=== PATIENT | male | born 1985 | race Caucasian/White ===

== ENCOUNTER 2018-04-01 13:11 | Emergency (ER) | payer OTHER, MEDICAID, SELFPAY ==
[2018-04-01 13:21] VITALS: BP 112/81; PULSE 90; RESP 17; TEMP 36.2; O2SAT 100; BMI 21.2
[2018-04-01 13:49] LABS: Bacteria Urine None Seen; WBC Urine None Seen (0-5/HPF)
[2018-04-01 14:02] LABS: Calcium Oxalate Crystals Urine Few; Culture Indicated Urine Cult Not Indicated; RBC Urine 5-10/HPF (0-5/HPF); Squamous Epithelial Cell Urine 1-5 /HPF
--- NOTE | 2018-04-01 15:34 | DI.CT.S_ITS ---
PROCEDURE: CT KIDNEY URETER BLADDER (KUB) INDICATIONS: Right flank pain, h/o stones TECHNIQUE: Noncontrast 5 mm thick sections acquired from the diaphragms to the symphysis. 5 mm thick coronal and sagittal reformats were then performed. For radiation dose reduction, the following was used: automated exposure control, adjustment of mA and/or kV according to patient size. COMPARISON: None. FINDINGS: Image quality: Excellent. Lung bases: Lung bases are clear. Heart size is normal. Urinary system: Both kidneys are normal in size. 1 mm stone noted in the lower pole of the right kidney. 2 mm nonobstructing stone noted in the upper pole left kidney. 2 mm nonobstructing stone noted in the lower pole of kidney. No hydronephrosis or perinephric fat stranding. Both ureters appear non-dilated throughout their expected courses. Bladder wall thickness is normal; no calcified bladder stones. Other solid organs: Liver is normal in size. Gallbladder is within normal limits. Pancreas is normal in contours. Spleen is normal in size. No adrenal nodules. Peritoneum and bowel: Unenhanced bowel loops demonstrate normal wall thickness and caliber. Large amount of stool is noted in the right and transverse colon. No free fluid or air. Visualized appendix is within normal limits. Nodes and vessels: No retroperitoneal or mesenteric adenopathy by size criteria. Aorta and inferior vena cava are normal in caliber. Abdominal wall: No ventral hernias. Pelvis: No free pelvic fluid. No inguinal hernias or adenopathy. Bones: No suspicious bony lesions. No vertebral body compression fractures. IMPRESSION: 1. Small bilateral nonobstructing renal stones. 2. No hydronephrosis. 3. Severe fecal loading involving the right and transverse colon. Please correlate with clinical data. Dictated by: Tana Bhatti MD, PhD on 04/01/2018 at 15:58 Approved by: Tana Bhatti MD, PhD on 04/01/2018 at 16:04
--- NOTE | 2018-04-01 15:42 | ED_ITS ---
HPI - Male Genitourinary <Anna Torres PA-C - Last Filed: 04/01/18 22:48> General Chief complaint: Urogenital-Male Stated complaint: states possibly kidney stones Time Seen by Provider: 04/01/18 15:20 Source: patient Mode of arrival: ambulatory Limitations: no limitations History of Present Illness HPI Narrative: This 33-year-old male has a history of multiple kidney stones and thinks he has another. He states that he had onset of right flank pain yesterday that is progressively worsening today. He states that last time he had a stone was a couple of months ago and typically he will pass them on his own, but not thus far. He states the pain is fairly localized in the right flank but can feel like it is wrapping around to the front a little bit at times. He has had nausea today but not vomiting. He states he has not eaten last couple of days but is tolerating fluids. He denies fever. He states he might have mild dysuria today, no frequency, urgency, or hematuria. He denies chest pain, dyspnea, or other new complaints on systems review. His last bowel movement was a day or 2 ago he states, none today, but normal Related Data Previous Rx's Medication Instructions Recorded ondansetron [Zofran ODT] 4 mg PO Q6-8H PRN #7 tab 04/01/18 oxycodone-acetaminophen [Percocet] 1 tab PO Q4-6H PRN #7 tab 04/01/18 Allergies Allergy/AdvReac Type Severity Reaction Status Date / Time hydromorphone [From Dilaudid] Allergy Verified 04/01/18 13:20 Review of Systems <Anna Torres PA-C - Last Filed: 04/01/18 22:48> Review of Systems All systems reviewed & are unremarkable except as noted in HPI and below Exam <Anna Torres PA-C - Last Filed: 04/01/18 22:48> Narrative Exam Narrative: GENERAL APPEARANCE: Patient appears mildly uncomfortable but in NAD HEENT: PERRL, EOMI, no scleral icterus NECK: Supple LUNGS: Clear to auscultation bilaterally. HEART: Rate and rhythm regular, normal S1 and S2, no S3 or S4. ABDOMEN: Soft, nondistended, bowel sounds present x 4 quadrants, no masses palpable, no hepatosplenomegaly. He has moderate right CVAT and also little bit tender over the lateral flank, none on the left, no tenderness elsewhere EXTREMITIES: No edema, no cyanosis DERMATOLOGIC: No jaundice or exanthem NEUROLOGIC: Alert and oriented with normal speech and coordination Initial Vital Signs Initial Vital Signs: Vital Signs Temperature 97.1 F L 04/01/18 13:21 Pulse Rate 90 04/01/18 13:21 Respiratory Rate 17 04/01/18 13:21 Blood Pressure 112/81 H 04/01/18 13:21 Pulse Oximetry 100 04/01/18 13:21 <Suzette Ledesma DO - Last Filed: 04/05/18 08:41> Initial Vital Signs Initial Vital Signs: Vital Signs Temperature 97.1 F L 04/01/18 13:21 Pulse Rate 90 04/01/18 13:21 Respiratory Rate 17 04/01/18 13:21 Blood Pressure 112/81 H 04/01/18 13:21 Pulse Oximetry 100 04/01/18 13:21 Course <Anna Torres PA-C - Last Filed: 04/01/18 22:48> Additional Information: Patient was significantly improved after fluids and medication. He ate half a sandwich and was drinking juice without any problems. Reviewed findings of small kidney stones and also constipation without obstruction. Advised on treatment of this for now as well as whenever he takes opioids. Advised return if any acutely worsening symptoms again since he has no PCP, and he is agreeable Orders Ordered: Discontinued Medications Sodium Chloride (Normal Saline 0.9%) 1,000 mls @ 1,000 mls/hr IV BOLUS ONE Stop: 04/01/18 16:33 Last Infusion: 04/01/18 17:50 Dose: 0 mls/hr Admin: 04/01/18 16:28 Dose: 1,000 mls/hr Ondansetron HCl (Zofran) 4 mg IV NOW ONE Stop: 04/01/18 15:35 Last Admin: 04/01/18 16:28 Dose: 4 mg Oxycodone/Acetaminophen (Percocet 5/325) 2 tab PO NOW ONE Stop: 04/01/18 15:35 Last Admin: 04/01/18 16:28 Dose: 2 tab Vital Signs - 8 hr 04/01/18 13:21 Temperature 97.1 F L Pulse Rate 90 Respiratory Rate 17 Blood Pressure 112/81 H Pulse Oximetry 100 <Suzette Ledesma DO - Last Filed: 04/05/18 08:41> Orders Ordered: Discontinued Medications Sodium Chloride (Normal Saline 0.9%) 1,000 mls @ 1,000 mls/hr IV BOLUS ONE Stop: 04/01/18 16:33 Last Infusion: 04/01/18 17:50 Dose: 0 mls/hr Admin: 04/01/18 16:28 Dose: 1,000 mls/hr Ondansetron HCl (Zofran) 4 mg IV NOW ONE Stop: 04/01/18 15:35 Last Admin: 04/01/18 16:28 Dose: 4 mg Oxycodone/Acetaminophen (Percocet 5/325) 2 tab PO NOW ONE Stop: 04/01/18 15:35 Last Admin: 04/01/18 16:28 Dose: 2 tab Vital Signs - 8 hr 04/01/18 13:21 Temperature 97.1 F L Pulse Rate 90 Respiratory Rate 17 Blood Pressure 112/81 H Pulse Oximetry 100 MDM - Male Genitourinary <Anna Torres PA-C - Last Filed: 04/01/18 22:48> Lab Data Result diagrams: 04/01/18 15:15 04/01/18 15:15 Lab Results 04/01/18 04/01/18 04/01/18 Range/Units 13:17 15:15 15:15 WBC 9.0 (4.5-11.0) X10^3/uL RBC 5.17 (4.5-5.9) X10^6/uL Hgb 16.2 (13.5-17.5) g/dL Hct 48.8 (41-53) % MCV 94.4 (80-100) fL MCH 31.4 (26-34) PG MCHC 33.2 (30-36) % RDW 13.8 (11.6-14.8) % Plt Count 324 (150-400) X10^3/uL Neut % (Auto) 79.3 H (50-75) % Lymph % (Auto) 13.2 L (25-40) % [place] % (Auto) 4.7 (3-14) % Eos % (Auto) 2.0 (2-4) % Baso % (Auto) 0.8 (0-2) % Neut # (Auto) 7200 H (2362-9562) /uL Sodium 141 (137-145) mmol/L Potassium 4.4 (3.4-5.1) mmol/L Chloride 103 (98-107) mmol/L Carbon Dioxide 30 (22-32) mmol/L BUN 14 (9-20) mg/dL Creatinine 0.90 (0.66-1.25) mg/dL Estimated GFR > 60.0 (>60) mL/min BUN/Creatinine Ratio 15.6 (6-22) Glucose 91 (70-100) mg/dL Calcium 9.0 (8.4-10.2) mg/dL Total Bilirubin 0.9 (0.2-1.3) mg/dL AST 21 (17-59) IU/L ALT 25 (21-72) IU/L Alkaline Phosphatase 73 (38-126) U/L Total Protein 7.0 (6.3-8.2) g/dL Albumin 3.9 (3.5-5.0) g/dL Globulin 3.1 (1.7-4.1) g/dL Albumin/Globulin Ratio 1.3 (1.0-2.8) Urine RBC 5-10/hpf H (0-5/HPF) Urine WBC None seen (0-5/HPF) Ur Squamous Epith Cells 1-5 /hpf Calcium Oxalate Crystal Few H (None) Urine Bacteria None seen (None) Ur Culture Indicated? Cult not indicated Micro UA Comment Not Reportable Imaging Data CT scan - abdomen: Radiologist's impression: [address] [address] [address] Scan Report Signed Patient: Ruiz Cain MR#: [id number] : 1985 Acct:[id number] Age/Sex: 33 / M Date of Service: 04/01/18 Loc: ED Accession Number: [id number] Procedure: CT kidney ureter bladder (KUB) Ordering Provider: Anna Torres P.A-C PROCEDURE: CT KIDNEY URETER BLADDER (KUB) INDICATIONS: Right flank pain, h/o stones TECHNIQUE: Noncontrast 5 mm thick sections acquired from the diaphragms to the symphysis. 5 mm thick coronal and sagittal reformats were then performed. For radiation dose reduction, the following was used: automated exposure control, adjustment of mA and/or kV according to patient size. COMPARISON: None. FINDINGS: Image quality: Excellent. Lung bases: Lung bases are clear. Heart size is normal. Urinary system: Both kidneys are normal in size. 1 mm stone noted in the lower pole of the right kidney. 2 mm nonobstructing stone noted in the upper pole left kidney. 2 mm nonobstructing stone noted in the lower pole of kidney. No hydronephrosis or perinephric fat stranding. Both ureters appear non-dilated throughout their expected courses. Bladder wall thickness is normal; no calcified bladder stones. Other solid organs: Liver is normal in size. Gallbladder is within normal limits. Pancreas is normal in contours. Spleen is normal in size. No adrenal nodules. Peritoneum and bowel: Unenhanced bowel loops demonstrate normal wall thickness and caliber. Large amount of stool is noted in the right and transverse colon. No free fluid or air. Visualized appendix is within normal limits. Nodes and vessels: No retroperitoneal or mesenteric adenopathy by size criteria. Aorta and inferior vena cava are normal in caliber. Abdominal wall: No ventral hernias. Pelvis: No free pelvic fluid. No inguinal hernias or adenopathy. Bones: No suspicious bony lesions. No vertebral body compression fractures. IMPRESSION: 1. Small bilateral nonobstructing renal stones. 2. No hydronephrosis. 3. Severe fecal loading involving the right and transverse colon. Please correlate with clinical data. Dictated by: Tana Bhatti MD, PhD on 04/01/2018 at 15:58 Approved by: Tana Bhatti MD, PhD on 04/01/2018 at 16:04 <Suzette Ledesma DO - Last Filed: 04/05/18 08:41> Lab Data Lab Results 04/01/18 04/01/18 04/01/18 Range/Units 13:17 15:15 15:15 WBC 9.0 (4.5-11.0) X10^3/uL RBC 5.17 (4.5-5.9) X10^6/uL Hgb 16.2 (13.5-17.5) g/dL Hct 48.8 (41-53) % MCV 94.4 (80-100) fL MCH 31.4 (26-34) PG MCHC 33.2 (30-36) % RDW 13.8 (11.6-14.8) % Plt Count 324 (150-400) X10^3/uL Neut % (Auto) 79.3 H (50-75) % Lymph % (Auto) 13.2 L (25-40) % [place] % (Auto) 4.7 (3-14) % Eos % (Auto) 2.0 (2-4) % Baso % (Auto) 0.8 (0-2) % Neut # (Auto) 7200 H (0320-2225) /uL Sodium 141 (137-145) mmol/L Potassium 4.4 (3.4-5.1) mmol/L Chloride 103 (98-107) mmol/L Carbon Dioxide 30 (22-32) mmol/L BUN 14 (9-20) mg/dL Creatinine 0.90 (0.66-1.25) mg/dL Estimated GFR > 60.0 (>60) mL/min BUN/Creatinine Ratio 15.6 (6-22) Glucose 91 (70-100) mg/dL Calcium 9.0 (8.4-10.2) mg/dL Total Bilirubin 0.9 (0.2-1.3) mg/dL AST 21 (17-59) IU/L ALT 25 (21-72) IU/L Alkaline Phosphatase 73 (38-126) U/L Total Protein 7.0 (6.3-8.2) g/dL Albumin 3.9 (3.5-5.0) g/dL Globulin 3.1 (1.7-4.1) g/dL Albumin/Globulin Ratio 1.3 (1.0-2.8) Urine RBC 5-10/hpf H (0-5/HPF) Urine WBC None seen (0-5/HPF) Ur Squamous Epith Cells 1-5 /hpf Calcium Oxalate Crystal Few H (None) Urine Bacteria None seen (None) Ur Culture Indicated? Cult not indicated Micro UA Comment Not Reportable Discharge Plan Departure Patient Disposition: Home, Self-Care Clinical Impression: Bilateral kidney stones, Constipation Discharge Date/Time: 04/01/18 17:56 Interventions: ED Discharge Assessment Last Done: 04/01/18 17:57 Instructions: DI for Kidney Stones Activity Restrictions/Additional Instructions: Since you have had frequent kidney stones, please call your insurance for referral to a primary care provider so you can talk about whether a urology consultation would be helpful so you have established care in case you have an obstructing stone in the future. You can take the Percocet as needed today and tomorrow, I expect the stones to pass by then. Do not drive when taking this. I have included a prescription for some nausea medicine as well that has been sent to the pharmacy. Your CT scan showed constipation which may be contributing to your symptoms though you do not have a bowel obstruction. Try mixing 4-6 oz each of apple juice and prune juice with a serving of over-the- counter Maalox and MiraLax. You can repeat that tomorrow as needed for the constipation. You should also take MiraLax whenever you are taking pain medicine for your kidney stones. Prescriptions: New oxycodone-acetaminophen [Percocet] 5-325 mg tablet 1 tab PO Q4-6H PRN (Reason: kidney stone) Qty: 7 RF: 0 ondansetron [Zofran ODT] 4 mg tablet,disintegrating 4 mg PO Q6-8H PRN (Reason: nausea and vomiting) Qty: 7 RF: 0 <Suzette Ledesma, DO - Last Filed: 04/05/18 08:41> [facility] Attending Kiley[facility] Attestation: I was immediately available in the department for consultation. Documentation has been reviewed. I agree with assessment and plan.
[2018-04-01 15:43] LABS: Add Manual Diff / Slide Review NO; Basophils Percent Auto 0.8 % (0-2); Hematocrit 48.8 % (41-53); Hemoglobin 16.2 g/dL (13.5-17.5); Lymphocytes Percent Auto 13.2 % (25-40); Mean Corpuscular HGB Conc 33.2 % (30-36); Mean Corpuscular Hemoglobin 31.4 PG (26-34); Mean Corpuscular Volume 94.4 fL (80-100); Monocytes Percent Auto 4.7 % (3-14); Neutrophils Absolute Auto 7200 /uL (3000-5900); Neutrophils Percent Auto 79.3 % (50-75); Platelet Count 324 X10^3/uL (150-400); Red Blood Cell Count 5.17 X10^6/uL (4.5-5.9); Red Cell Distribution Width 13.8 % (11.6-14.8)
[2018-04-01 15:47] LABS: Alanine Aminotransferase 25 IU/L (21-72); Albumin 3.9 g/dL (3.5-5.0); Albumin Globulin Ratio 1.3 (1.0-2.8); Alkaline Phosphatase 73 U/L (38-126); Aspartate Aminotransferase 21 IU/L (17-59); BUN Creatinine Ratio 15.6 (6-22); Bilirubin Total 0.9 mg/dL (0.2-1.3); Blood Urea Nitrogen 14 mg/dL (9-20); Carbon Dioxide 30 mmol/L (22-32); Chloride 103 mmol/L (98-107); Estimated Glomerular Filt Rate > 60.0 mL/min (>60); Globulin 3.1 g/dL (1.7-4.1); Glucose 91 mg/dL (70-100); HEMOLYSIS < 15 (0-50); Potassium 4.4 mmol/L (3.4-5.1); Sodium 141 mmol/L (137-145)
[2018-04-01] MEDS: ONDANSETRON 4 MG/2 ML INJ IV (16:28)
[2018-04-01] MEDS: SODIUM CHLORIDE 0.9% 1,000 ML 1000 ML IV (16:28)
[2018-04-01] MEDS: OXYCODONE/ACETAMINOPHEN 5/325 TABLET 2 TAB PO (16:28)
== END 2018-04-01 17:56 | disposition home or self-care (01) ==
PROVIDERS: Emergency Provider Internal Medicine
DX: N20.0 Calculus of kidney (principal); K59.00 Constipation, unspecified
CPT/HCPCS: 36591; 74176; 80053; 81003; 81015; 85025; 96361; 96374; 99283; 99284; J2405

== ENCOUNTER 2018-05-07 11:57 | Emergency (ER) | payer OTHER, MEDICAID, SELFPAY ==
--- NOTE | 2018-05-07 12:27 | PC.NURSE ---
Pt called at 1215, not in waiting area. Registration stated he had left. Viewed upon walking into ED, able to bear weight, no acute distress.
== END 2018-05-07 12:27 | disposition left against medical advice (07) ==
LOC: ED 12:03
DX: T14.8XXA Other injury of unspecified body region, initial encounter (principal)

== ENCOUNTER 2018-06-20 08:36 | Emergency (ER) | payer OTHER, MEDICAID, SELFPAY ==
[2018-06-20 08:41] VITALS: BP 117/76; PULSE 86; RESP 18; TEMP 36.4; O2SAT 100; BMI 21.2
--- NOTE | 2018-06-20 08:49 | ED.BACK ---
HPI - Back Pain/Injury General Chief Complaint: Back Pain/Injury Stated Complaint: 'SOMETHING IS WRONG WITH BACK' Time Seen by Provider: 06/20/18 08:39 Source: patient Mode of arrival: ambulatory Limitations: no limitations History of Present Illness HPI Narrative: 33-year-old smoker with no other significant medical history presents with chief complaint of left-sided upper back pain which is worse with motion and improves with rest ever since cleaning his carpets yesterday. He denies any direct trauma. He has no numbness, tingling or weakness. He denies any history of the same. He denies shortness of breath and is not dizzy nor weak or lightheaded. MD Complaint: back pain Onset (ago): hour(s) Duration: intermittent Similar Symptoms Previously: No Location: thoracic spine Severity: moderate Quality: sharp Radiation: none Relieving factors: immobilization Exacerbating factors: movement Associated symptoms: denies other symptoms Related Data Previous Rx's Medication Instructions Recorded ondansetron [Zofran ODT] 4 mg PO Q6-8H PRN #7 tab 04/01/18 clotrimazole 1 % topical cream 1 applictn TOP BID 28 Days #30 gram 05/31/18 oxycodone-acetaminophen 5 mg-325 1 tab PO Q4-6H PRN #10 tab 05/31/18 mg tablet tamsulosin 0.4 mg capsule 0.4 mg PO DAILY #30 cap 05/31/18 ketorolac 10 mg PO Q6H PRN #14 tab 06/20/18 methocarbamol [Robaxin] 500 mg PO QID PRN #14 tab 06/20/18 tramadol [Ultram] 50 mg PO Q6H PRN #10 tab 06/20/18 Allergies Allergy/AdvReac Type Severity Reaction Status Date / Time hydromorphone [From Dilaudid] Allergy Verified 06/20/18 08:41 Review of Systems Review of Systems All systems reviewed & are unremarkable except as noted in HPI and below Constitutional Denies chills, Denies fever(s), Denies lethargy and Denies weakness Eyes Denies change in vision, Denies eye discharge, Denies irritation and Denies loss of vision ENT Ears, Nose, Mouth, and Throat: Denies change in voice, Denies neck pain and Denies sore throat Cardiovascular Denies chest pain, Denies irregular heart rhythm, Denies lightheadedness, Denies palpitations, Denies dyspnea, Denies dyspnea on exertion and Denies orthopnea Respiratory Denies cough, Denies dyspnea, Denies dyspnea on exertion and Denies wheezing Gastrointestinal Gastrointestinal: Denies abdominal pain, Denies change in bowel habits, Denies diarrhea, Denies nausea and Denies vomiting Genitourinary Denies hematuria, Denies flank pain, Denies urinary incontinence and Denies urinary urgency Musculoskeletal Reports limited range of motion and Denies neck pain Integumentary/Breasts Denies pruritus, Denies erythema, Denies rash and Denies wounds Neurologic Denies confusion, Denies loss of vision and Denies weakness Psychiatric Denies anxiety, Denies confusion, Denies depression, Denies homicidal ideation and Denies suicidal ideation Endocrine Denies palpitations Hematologic/Lymphatic Denies easy bruising Allergic/Immunologic Denies wheezing [facility] Medical History Nephrolithiasis (Chronic) Social History Smoking Status: Current every day smoker alcohol intake: current substance use type: marijuana Exam Narrative Exam Narrative: 33M in mild distress, sitting on a cart GEN: AOx3 and in mild distress EYES: Pupils are equal, round, and reactive to light and accommodation. Extraoccular muscles are intact bilaterally. There is no subconjunctival hemorrhage or exudate. CHEST: Lungs are clear to auscultation bilaterally and free of wheezes, rales, or rhonchi. Heart rate is regular rhythm, there are no murmurs, clicks, rubs, or gallops. There is no chest wall tenderness. ABD: Abdomen is soft and nontender. There is no guarding or rebound. Bowel sounds are normal in all 4 quadrants. There is no mass or organomegaly. EXT: Full painless ROM of all extremities with no loss of sensation or strength. SKIN: Warm, pink, and dry. No erythema or rash BACK: mangle tender but free of any obvious external abnormalities. Patient exam notes decreased range of motion and muscle spasm, but no CVA tenderness, or vertebral point tenderness. There are no symptoms of cauda equina such as saddle anesthesia, and decreased reflexes, decreased sensation or strength. Initial Vital Signs Initial Vital Signs: Vital Signs Temperature 97.5 F L 06/20/18 08:41 Pulse Rate 86 06/20/18 08:41 Respiratory Rate 18 06/20/18 08:41 Blood Pressure 117/76 06/20/18 08:41 Pulse Oximetry 100 06/20/18 08:41 Course Orders Ordered: Discontinued Medications Amoxicillin/Clavulanate Potassium (Augmentin 875-125 Mg) 1 tab PO NOW ONE Stop: 06/20/18 09:29 Ketorolac Tromethamine (Toradol) 60 mg IM NOW ONE Stop: 06/20/18 09:11 Vital Signs - 8 hr 06/20/18 08:41 Temperature 97.5 F L Pulse Rate 86 Respiratory Rate 18 Blood Pressure 117/76 Pulse Oximetry 100 Discharge Plan Departure Patient Disposition: Home Clinical Impression: Acute thoracic myofascial strain Instructions: DI for Muscle Strain Activity Restrictions/Additional Instructions: You have been prescribed narcotic medications. While on these medications you cannot drive or operate heavy machinery. Additionally you cannot sign legal documents or perform any duties such as this. Many people get constipated on narcotic medications so it would be advisable to discuss stool softeners with the pharmacist when you excelsior picker your prescription. Please understand that we cannot provide further refills of narcotics or controlled substances through the ED and your pain management will need to be through your Primary Care Provider *You have been diagnosed with [acute thoracic muscle strain ] *What to do: *Take medications as directed: 2 prescriptions have been electronically transmitted to [facility] *Follow up with your primary care provider in 2-3 days, call for an appointment. Let them know you were seen in the Emergency Department and that we ask that you be seen in follow up *Return to ER if you should have any new, worsening or concerning symptoms Prescriptions: New ketorolac 10 mg tablet 10 mg PO Q6H PRN (Reason: pain) Qty: 14 RF: 0 methocarbamol [Robaxin] 500 mg tablet 500 mg PO QID PRN (Reason: spasms) Qty: 14 RF: 0 tramadol [Ultram] 50 mg tablet 50 mg PO Q6H PRN (Reason: pain) Qty: 10 RF: 0 No Action tamsulosin 0.4 mg capsule 0.4 mg PO DAILY Qty: 30 RF: 0 oxycodone-acetaminophen 5-325 mg tablet 1 tab PO Q4-6H PRN (Reason: pain) Qty: 10 RF: 0 clotrimazole [Antifungal (clotrimazole)] 1 % cream 1 applictn TOP BID 28 Days Qty: 30 RF: 0 ondansetron [Zofran ODT] 4 mg tablet,disintegrating 4 mg PO Q6-8H PRN (Reason: nausea and vomiting) Qty: 7 RF: 0
[2018-06-20 09:30] VITALS: BP 108/70; PULSE 65; RESP 18; O2SAT 100
[2018-06-20] MEDS: KETOROLAC 60 MG/2 ML VIAL IM (09:34)
[2018-06-20 09:45] VITALS: BP 125/81; PULSE 64; RESP 16; O2SAT 100
== END 2018-06-20 09:46 | disposition home or self-care (01) ==
PROVIDERS: Emergency Provider Emergency Medicine
DX: S29.019A Strain of muscle and tendon of unspecified wall of thorax, initial encounter (principal); X50.1XXA Overexertion from prolonged static or awkward postures, initial encounter
CPT/HCPCS: 96372; 99282; 99283; J1885

== ENCOUNTER 2018-06-28 11:48 | Emergency (ER) | payer OTHER, MEDICAID, SELFPAY ==
[2018-06-28 12:13] VITALS: BP 125/69; PULSE 102; RESP 20; TEMP 37.3; O2SAT 99
--- NOTE | 2018-06-28 12:34 | ED.DENTAL ---
HPI - Dental/Oral General Chief complaint: Dental/Oral Stated complaint: states infection in mouth Time Seen by Provider: 06/28/18 12:34 Source: patient Mode of arrival: ambulatory Limitations: no limitations History of Present Illness HPI Narrative: 33-year-old male here for evaluation of left upper tooth pain. He states that he has had a cracked left upper tooth for many years now. Over the past couple days it has become more painful. He has sinus congestion. Purulent drainage from his left nose. Pain left side of his face. No problems breathing. No problems eating. Has not tried anything for prior to arrival. Has not seen a dentist for. Related Data Home Medications Medication Instructions Recorded Confirmed clotrimazole 1 applic TOPICAL BID 06/28/18 06/28/18 ondansetron 1 tab PO DAILYX5 06/28/18 06/28/18 Previous Rx's Medication Instructions Recorded oxycodone-acetaminophen 5 mg-325 1 tab PO Q4-6H PRN #10 tab 05/31/18 mg tablet tamsulosin 0.4 mg capsule 0.4 mg PO DAILY #30 cap 05/31/18 ketorolac 10 mg PO Q6H PRN #14 tab 06/20/18 methocarbamol [Robaxin] 500 mg PO QID PRN #14 tab 06/20/18 tramadol [Ultram] 50 mg PO Q6H PRN #10 tab 06/20/18 clindamycin HCl 300 mg PO QID 10 Days #40 cap 06/28/18 hydrocodone-acetaminophen [[place]] 1 tab PO Q4-6H PRN #7 tab 06/28/18 Allergies Allergy/AdvReac Type Severity Reaction Status Date / Time hydromorphone [From Dilaudid] Allergy Verified 06/20/18 08:41 Review of Systems Constitutional Denies fatigue and Denies fever(s) Eyes Denies blurry vision and Denies diplopia ENT Ears, Nose, Mouth, and Throat: Reports halitosis, Reports dental pain, Denies vertigo, Denies dizziness, Reports facial pain, Reports mouth pain, Reports sinus pressure and Denies sore throat Cardiovascular Denies dyspnea Respiratory Denies dyspnea Integumentary/Breasts Denies lesions and Denies rash Neurologic Denies vertigo and Denies dizziness Endocrine Denies fatigue Hematologic/Lymphatic Denies easy bleeding and Denies easy bruising [facility] Medical History Nephrolithiasis (Chronic) Social History Smoking Status: Current every day smoker alcohol intake: current substance use type: marijuana Exam Initial Vital Signs Initial Vital Signs: Vital Signs Temperature 99.1 F 06/28/18 12:13 Pulse Rate 102 H 06/28/18 12:13 Respiratory Rate 20 06/28/18 12:13 Blood Pressure 125/69 06/28/18 12:13 Pulse Oximetry 99 06/28/18 12:13 Const General: cooperative, healthy appearing, comfortable, well developed, well groomed and No acute distress Orientation: alert, awake and oriented x3 HENMT Mouth: moist mucous membranes, No mouth trauma, No tongue abnormal and No abnormal TMJ Teeth and gingiva: gingiva normal, caries, poor dentition and other (Tooth 15 fracture) Neck Neck: normal visual inspection and No lymphadenopathy Resp Effort & Inspection: normal respiratory effort Skin Lesions: no lesions Rashes: no rashes Neuro General: alert and awake Psych Appearance: grossly normal and well kempt Course Vital Signs - 8 hr 06/28/18 12:13 Temperature 99.1 F Pulse Rate 102 H Respiratory Rate 20 Blood Pressure 125/69 Pulse Oximetry 99 MDM - Dental/Oral MDM Narrative Medical decision making narrative: Patient with multiple dental caries and multiple fractured teeth. He was tender over tooth 14. And 15. No drainable abscess seen here in the emergency department. No lymphadenopathy. No respiratory distress. Will send home on antibiotics and pain medication. He was also instructed to start taking anti-inflammatories. He will call the [facility] dental [facility] and [place] to get this taken care. He was given return precautions. Despite his allergy to Dilaudid he states that he can take [place]. Discharge Plan Departure Patient Disposition: Home Clinical Impression: Fracture of tooth, Pain, dental Instructions: DI for Dental Pain Activity Restrictions/Additional Instructions: Start taking the antibiotics today. I also recommend that you start on any anti-inflammatories such as Motrin/ibuprofen. Call the [facility] dental [facility] and [place] to schedule a follow-up. Return to the emergency department for any new or worsening symptoms Prescriptions: New hydrocodone-acetaminophen [[place]] 5-325 mg tablet 1 tab PO Q4-6H PRN (Reason: pain) Qty: 7 RF: 0 clindamycin HCl 300 mg capsule 300 mg PO QID 10 Days Qty: 40 RF: 0 No Action tamsulosin 0.4 mg capsule 0.4 mg PO DAILY Qty: 30 RF: 0 oxycodone-acetaminophen 5-325 mg tablet 1 tab PO Q4-6H PRN (Reason: pain) Qty: 10 RF: 0 ketorolac 10 mg tablet 10 mg PO Q6H PRN (Reason: pain) Qty: 14 RF: 0 methocarbamol [Robaxin] 500 mg tablet 500 mg PO QID PRN (Reason: spasms) Qty: 14 RF: 0 tramadol [Ultram] 50 mg tablet 50 mg PO Q6H PRN (Reason: pain) Qty: 10 RF: 0 ondansetron 4 mg tablet,disintegrating 1 tab PO DAILYX5 RF: 0 clotrimazole 1 % cream 1 applic Topical BID RF: 0
== END 2018-06-28 13:01 | disposition home or self-care (01) ==
PROVIDERS: Emergency Provider Emergency Medicine
DX: S02.5XXA Fracture of tooth (traumatic), initial encounter for closed fracture (principal); K08.89 Other specified disorders of teeth and supporting structures
CPT/HCPCS: 99282

== ENCOUNTER 2018-07-13 11:18 | Emergency (ER) | payer OTHER, MEDICAID, SELFPAY ==
[2018-07-13 11:20] VITALS: BMI 21.2
[2018-07-13 11:34] VITALS: BP 133/76; PULSE 84; RESP 16; TEMP 37.2; O2SAT 99
--- NOTE | 2018-07-13 12:08 | ED_ITS ---
HPI - URI/Sore Throat <Anna Torres PA-C - Last Filed: 07/13/18 21:02> General Chief Complaint: Upper Respiratory Symptoms Stated Complaint: STILL HAS SINUS INFECTION Time Seen by Provider: 07/13/18 12:05 Source: patient Mode of arrival: ambulatory Limitations: no limitations History of Present Illness HPI Narrative: This 33-year-old male returns to ED due to persistent sinus symptoms. He complains of persistent left-sided facial pain, now mainly around his left eye, with foul-smelling postnasal drip and discolored nasal drainage from the left side only. He states that the drainage can make him nauseated at times. He states that he does have some cough which he thinks is from the drainage, tends to be worse in the morning. He denies any wheeze or dyspnea. He denies any fever, chills, or sweats recently. He states that he took the antibiotic that he was prescribed here and finished it but has continued to have some persistent symptoms aside from slight fever which resolved. He states that he did see the dentist at [facility] and evaluation showed that he had dental problems but not acute infection. He does not have a PCP so returns here. He is working on this with his insurance Related Data Home Medications Medication Instructions Recorded Confirmed clotrimazole 1 applic TOPICAL BID 06/28/18 06/28/18 ondansetron 1 tab PO DAILYX5 06/28/18 06/28/18 Previous Rx's Medication Instructions Recorded oxycodone-acetaminophen 5 mg-325 1 tab PO Q4-6H PRN #10 tab 05/31/18 mg tablet tamsulosin 0.4 mg capsule 0.4 mg PO DAILY #30 cap 05/31/18 ketorolac 10 mg PO Q6H PRN #14 tab 06/20/18 methocarbamol [Robaxin] 500 mg PO QID PRN #14 tab 06/20/18 tramadol [Ultram] 50 mg PO Q6H PRN #10 tab 06/20/18 hydrocodone-acetaminophen [[place]] 1 tab PO Q4-6H PRN #7 tab 06/28/18 amoxicillin-pot clavulanate 1 tab PO Q12H 10 Days #20 tab 07/13/18 [Augmentin] Allergies Allergy/AdvReac Type Severity Reaction Status Date / Time hydromorphone [From Jefferyid] Allergy Verified 07/13/18 11:20 Review of Systems <Anna Torres PA-C - Last Filed: 07/13/18 21:02> Review of Systems All systems reviewed & are unremarkable except as noted in HPI and below Exam <Anna Torres PA-C - Last Filed: 07/13/18 21:02> Narrative Exam Narrative: GENERAL APPEARANCE: Patient sitting comfortably, in no distress. HEAD: Localized right frontal and right medial maxillary tenderness, none elsewhere EYES: PERRL, EOMI. EARS: Normal auditory canals, TMS occluded by heavy cerumen bilaterally ORAL CAVITY: Normal oropharynx. THROAT: Clear, PND noted. NECK/THYROID: Neck supple, full range of motion, no cervical lymphadenopathy. LUNGS: Clear to auscultation bilaterally, no cough on exam. HEART: RRR without murmur, nl S1, S2, no S3 or S4. Initial Vital Signs Initial Vital Signs: Vital Signs Temperature 98.9 F 07/13/18 11:34 Pulse Rate 84 07/13/18 11:34 Respiratory Rate 16 07/13/18 11:34 Blood Pressure 133/76 07/13/18 11:34 Pulse Oximetry 99 07/13/18 11:34 <DO Cash Talbert Last Filed: 07/13/18 21:05> Initial Vital Signs Initial Vital Signs: Vital Signs Temperature 98.9 F 07/13/18 11:34 Pulse Rate 84 07/13/18 11:34 Respiratory Rate 16 07/13/18 11:34 Blood Pressure 133/76 07/13/18 11:34 Pulse Oximetry 99 07/13/18 11:34 Course <Anna Torres PA-C - Last Filed: 07/13/18 21:02> Vital Signs - 8 hr 07/13/18 11:34 Temperature 98.9 F Pulse Rate 84 Respiratory Rate 16 Blood Pressure [Left Arm] 133/76 Pulse Oximetry 99 <DO Cash Talbert Last Filed: 07/13/18 21:05> Vital Signs - 8 hr 07/13/18 11:34 Temperature 98.9 F Pulse Rate 84 Respiratory Rate 16 Blood Pressure [Left Arm] 133/76 Pulse Oximetry 99 Discharge Plan Departure Patient Disposition: Home Clinical Impression: Sinusitis Discharge Date/Time: 07/13/18 12:59 Interventions: ED Discharge Assessment Last Done: 07/13/18 12:59 Instructions: DI for Sinusitis Activity Restrictions/Additional Instructions: Please return if you have acutely worsening symptoms. Please call your insurance today and make sure you get set up next week for a follow-up with your new PCP as you may need a referral or further testing if you are not getting better. Please start the antibiotic I have prescribed for you today. You can add Zyrtec (cetirizine) 10 mg once daily to help with the drainage, as well as pseudoephedrine (get this from the pharmacist behind the counter) to help with congestion. You can continue your saline nasal spray as needed. Prescriptions: New amoxicillin-pot clavulanate [Augmentin] 875-125 mg tablet 1 tab PO Q12H 10 Days Qty: 20 RF: 0 No Action tamsulosin 0.4 mg capsule 0.4 mg PO DAILY Qty: 30 RF: 0 oxycodone-acetaminophen 5-325 mg tablet 1 tab PO Q4-6H PRN (Reason: pain) Qty: 10 RF: 0 ketorolac 10 mg tablet 10 mg PO Q6H PRN (Reason: pain) Qty: 14 RF: 0 methocarbamol [Robaxin] 500 mg tablet 500 mg PO QID PRN (Reason: spasms) Qty: 14 RF: 0 tramadol [Ultram] 50 mg tablet 50 mg PO Q6H PRN (Reason: pain) Qty: 10 RF: 0 ondansetron 4 mg tablet,disintegrating 1 tab PO DAILYX5 RF: 0 clotrimazole 1 % cream 1 applic Topical BID RF: 0 hydrocodone-acetaminophen [[place]] 5-325 mg tablet 1 tab PO Q4-6H PRN (Reason: pain) Qty: 7 RF: 0 <Jun Medeiros DO - Last Filed: 07/13/18 21:05> [facility] Attending [place] Attestation: I was available for consultation during this patient's emergency department encounter
== END 2018-07-13 12:59 | disposition home or self-care (01) ==
PROVIDERS: Emergency Provider Internal Medicine
DX: J32.9 Chronic sinusitis, unspecified (principal)
CPT/HCPCS: 99282

== ENCOUNTER 2019-02-21 05:20 | Emergency (ER) | payer OTHER, MEDICAID, SELFPAY ==
[2019-02-21 05:24] VITALS: BP 134/89; PULSE 91; RESP 18; TEMP 36.7; O2SAT 99; BMI 20.5
--- NOTE | 2019-02-21 05:36 | ED.WOUNDLAC ---
HPI - Wound/Laceration General Chief Complaint: Wound/Laceration Stated Complaint: tripped and fell, busted left side of lip Time Seen by Provider: 02/21/19 05:29 Source: patient Mode of arrival: ambulatory Limitations: no limitations History of Present Illness HPI narrative: 34-year-old male smoker and otherwise healthy presents to the emergency department with a chief complaint of ground level fall in which he fell forward striking his face a counter and an unfamiliar trailer. He denies loss of consciousness nor nausea or vomiting. He has a large, complex gaping laceration to the core the left side of his mouth. He denies any loose teeth and states when he bites he feels as if things line up appropriately. He denies LOC, N/V Onset (ago): minute(s) Location: face 1. Place: home Patient tetanus UTD: Yes Context: accidental Associated symptoms: pain Related Data Home Medications Medication Instructions Recorded Confirmed clotrimazole 1 applic TOPICAL BID 06/28/18 11/16/18 ondansetron 1 tab PO DAILYX5 06/28/18 11/16/18 Previous Rx's Medication Instructions Recorded tamsulosin 0.4 mg capsule 0.4 mg PO DAILY #30 cap 05/31/18 amoxicillin 875 mg-potassium 1 tab PO BID #20 tab 11/16/18 clavulanate 125 mg tablet Allergies Allergy/AdvReac Type Severity Reaction Status Date / Time hydromorphone [From Dilaudid] Allergy Severe Difficulty Verified 11/16/18 14:54 Breathing Review of Systems Constitutional Denies chills, Denies fever(s), Denies lethargy and Denies weakness Eyes Denies change in vision, Denies eye discharge, Denies irritation and Denies loss of vision ENT Ears, Nose, Mouth, and Throat: Denies change in voice, Denies neck pain and Denies sore throat Cardiovascular Denies chest pain, Denies irregular heart rhythm, Denies lightheadedness, Denies palpitations, Denies dyspnea, Denies dyspnea on exertion and Denies orthopnea Respiratory Denies cough, Denies dyspnea, Denies dyspnea on exertion and Denies wheezing Gastrointestinal Gastrointestinal: Denies abdominal pain, Denies change in bowel habits, Denies diarrhea, Denies nausea and Denies vomiting Genitourinary Denies hematuria, Denies flank pain, Denies urinary incontinence and Denies urinary urgency Musculoskeletal Denies neck pain Integumentary/Breasts Denies pruritus, Denies erythema, Denies rash and Reports wounds Neurologic Denies confusion, Denies loss of vision and Denies weakness Psychiatric Denies anxiety, Denies confusion, Denies depression, Denies homicidal ideation and Denies suicidal ideation Endocrine Denies palpitations Hematologic/Lymphatic Denies easy bruising Allergic/Immunologic Denies wheezing PFSH Medical History Nephrolithiasis (Chronic) Social History Smoking Status: Current every day smoker alcohol intake: current substance use type: marijuana Social History Smoking Status: Current every day smoker alcohol intake: current substance use type: marijuana Exam Narrative Exam Narrative: GENERAL: 34-year-old male appears stated age, tearful, upset obviously in pain HEAD: Large gaping, complex laceration of Left lateral mouth. Through and through including orbicularis thao with debris. Crossing gely border EYES: Pupils equal round and reactive. Extraocular motions intact. No scleral icterus. No injection or drainage. ENT: Nose without bleeding, purulent drainage or septal hematoma. Throat without erythema, tonsillar hypertrophy or exudate. Uvula midline. Airway patent. NECK: Trachea midline. No JVD or lymphadenopathy. Supple, nontender, no meningeal signs. CARDIOVASCULAR: Regular rate and rhythm without murmurs, gallops, or rubs. RESPIRATORY: Clear to auscultation. Breath sounds equal bilaterally. No wheezes, rales, or rhonchi. GASTROINTESTINAL: Abdomen soft, non-tender, nondistended. No hepato-splenomegaly, or palpable masses. No guarding. EXTREMITIES: No clubbing, cyanosis, or edema. No joint tenderness, effusion, or edema noted. BACK: Nontender without deformity or crepitance. No flank tenderness. NEURO: AOx3. SKIN: No rash or erythema. Initial Vital Signs Initial Vital Signs: Vital Signs Temperature 98.0 F 02/21/19 05:24 Pulse Rate 91 H 02/21/19 05:24 Respiratory Rate 18 02/21/19 05:24 Blood Pressure 134/89 02/21/19 05:24 Pulse Oximetry 99 02/21/19 05:24 Course Consultations Consultation #1: call to Dr. Dias (ENT) given complexity of this repair. He is making calls to his [place] partners Dr. Resendez will see patient at 0800 at his office next door. Vital Signs - 8 hr 02/21/19 05:24 Temperature 98.0 F Pulse Rate 91 H Respiratory Rate 18 Blood Pressure 134/89 Pulse Oximetry 99 Discharge Plan Departure Patient Disposition: Home Clinical Impression: Laceration Interventions: ED Discharge Assessment Last Done: 02/21/19 06:53 Activity Restrictions/Additional Instructions: Do not eat or drink anything until you are seen by Dr. Mal Resendez will see you at his office next door at 8am Prescriptions: No Action tamsulosin 0.4 mg capsule 0.4 mg PO DAILY Qty: 30 RF: 0 amoxicillin-pot clavulanate 875-125 mg tablet 1 tab PO BID Qty: 20 RF: 0 ondansetron 4 mg tablet,disintegrating 1 tab PO DAILYX5 RF: 0 clotrimazole 1 % cream 1 applic Topical BID RF: 0 Referrals: Erick Resendez MD [Physician] -
--- NOTE | 2019-02-21 05:57 | PC.NURSE ---
This nurse present when pt gave verbal permission to Dr Hirsch to take and transmit a photograph with Tonio's cell phone to Dr Arun MORRISON. Pt alert, oriented, not medicated and verbalized comprehension of Dr Hirsch's request.
--- NOTE | 2019-02-21 06:51 | PC.NURSE ---
wet to dry dressing applied to lip lac. covered with opsite to hold in place.
== END 2019-02-21 08:00 | disposition home or self-care (01) ==
PROVIDERS: Emergency Provider Emergency Medicine
DX: S01.511A Laceration without foreign body of lip, initial encounter (principal)
CPT/HCPCS: 99283

== ENCOUNTER 2019-02-21 22:35 | Emergency (ER) | payer OTHER, MEDICAID, SELFPAY ==
[2019-02-21 22:49] VITALS: BP 129/72; PULSE 88; RESP 19; TEMP 37.3; O2SAT 98; BMI 20.5
--- NOTE | 2019-02-21 22:51 | ED.WOUNDLAC ---
HPI - Wound/Laceration General Chief Complaint: Wound/Laceration Stated Complaint: MOUTH INJURY Time Seen by Provider: 02/21/19 22:49 Source: patient Mode of arrival: ambulatory Limitations: no limitations History of Present Illness HPI narrative: Patient is a 34-year-old male who was seen here in this emergency department early this morning for a complex laceration to the left side of his mouth. He followed up with ear nose and throat a few hours later. Given his ?phobia of needles? no closure was done in the office. The patient states that he is set up for surgery on of this week. He stated that he was not having any pain earlier today so declined any pain medication. He states that as today when on as he ate today he started to have more discomfort so he came to the emergency department for pain control. Related Data Home Medications Medication Instructions Recorded Confirmed clotrimazole 1 applic TOPICAL BID 06/28/18 11/16/18 ondansetron 1 tab PO DAILYX5 06/28/18 11/16/18 Previous Rx's Medication Instructions Recorded tamsulosin 0.4 mg capsule 0.4 mg PO DAILY #30 cap 05/31/18 amoxicillin 875 mg-potassium 1 tab PO BID #20 tab 11/16/18 clavulanate 125 mg tablet hydrocodone-acetaminophen [Sturdivant] 1 tab PO Q4-6H PRN #7 tab 02/21/19 Allergies Allergy/AdvReac Type Severity Reaction Status Date / Time hydromorphone [From Dilaudid] Allergy Severe Difficulty Verified 11/16/18 14:54 Breathing Review of Systems Constitutional Denies fever(s) ENT Comments: Left lip laceration Cardiovascular Denies dyspnea Respiratory Denies dyspnea Integumentary/Breasts Comments: Cut to the left side of his mouth Hematologic/Lymphatic Denies easy bleeding and Denies easy bruising [facility] Medical History Nephrolithiasis (Chronic) Social History Smoking Status: Current every day smoker alcohol intake: current substance use type: marijuana Exam Initial Vital Signs Initial Vital Signs: Vital Signs Temperature 99.2 F 02/21/19 22:49 Pulse Rate 88 02/21/19 22:49 Respiratory Rate 19 02/21/19 22:49 Blood Pressure 129/72 02/21/19 22:49 Pulse Oximetry 98 02/21/19 22:49 Const General: well developed, well groomed and No acute distress Orientation: alert and awake HENMT Mouth: No lip normal (Cut to the left side of the mouth) Resp Effort & Inspection: normal respiratory effort Skin Other: Extensive cut coming from the angle of the left side of his mouth over to the cheek. Psych Appearance: grossly normal and well kempt Course Orders Ordered: Discontinued Medications Hydrocodone Bitart/Acetaminophen (Vicodin Prepack) 1 bottle MISC SEEINSTR ONE Stop: 02/21/19 23:05 Last Admin: 02/21/19 23:16 Dose: 1 bottle Vital Signs - 8 hr 02/21/19 22:49 Temperature 99.2 F Pulse Rate 88 Respiratory Rate 19 Blood Pressure 129/72 Pulse Oximetry 98 MDM - Wound/Laceration MDM Narrative Medical decision making narrative: Patient is scheduled for operative repair on of this week. Patient was given a prepack of pain medications and a prescription. He was instructed to follow all of his preoperative instructions by the ENT providers. He is given return precautions. He is not in any respiratory distress. He expressed understanding and agreement plan. Discharge Plan Departure Patient Disposition: Home Clinical Impression: Laceration Discharge Date/Time: 02/21/19 23:23 Interventions: ED Discharge Assessment Last Done: 02/21/19 23:21 Activity Restrictions/Additional Instructions: No drinking while taking these pain medication. Keep all of your scheduled medical appointments. Follow all of the instructions given to you by the ENT provider. Return to the emergency department for any new or worsening symptoms Prescriptions: New hydrocodone-acetaminophen [[place]] 5-325 mg tablet 1 tab PO Q4-6H PRN (Reason: pain) Qty: 7 RF: 0 No Action tamsulosin 0.4 mg capsule 0.4 mg PO DAILY Qty: 30 RF: 0 amoxicillin-pot clavulanate 875-125 mg tablet 1 tab PO BID Qty: 20 RF: 0 ondansetron 4 mg tablet,disintegrating 1 tab PO DAILYX5 RF: 0 clotrimazole 1 % cream 1 applic Topical BID RF: 0
[2019-02-21] MEDS: HYDROCODONE/ACET 5/325 PREPACK 1 BOTTLE MISC (23:16)
== END 2019-02-21 23:23 | disposition home or self-care (01) ==
PROVIDERS: Emergency Provider Emergency Medicine
DX: S01.512A Laceration without foreign body of oral cavity, initial encounter (principal); W18.39XA Other fall on same level, initial encounter
CPT/HCPCS: 99282; 99283

== ENCOUNTER 2019-02-25 16:06 | Emergency (ER) | payer OTHER, MEDICAID, SELFPAY ==
[2019-02-25 16:15] VITALS: BP 116/88; PULSE 91; RESP 18; TEMP 37; O2SAT 100; BMI 20.5
--- NOTE | 2019-02-25 16:37 | ED.WOUNDLAC ---
HPI - Wound/Laceration <VERITO Wilkerson - Last Filed: 02/25/19 16:58> General Chief Complaint: Wound/Laceration Stated Complaint: wound left side cheek thinks is infected Time Seen by Provider: 02/25/19 16:17 Source: patient Mode of arrival: ambulatory Limitations: no limitations History of Present Illness HPI narrative: The patient is a 34-year-old male current everyday smoker who presents with a chief complaint of a likely infected laceration. He has been seen at this facility for this laceration on 02/21, and followed up with the ENT that day. He came back to the emergency department on the afternoon of 02/21. He was scheduled to have closure by ENT on 02/23. Unfortunately he was not able to secure a ride, so he was not able to have his laceration closed. He denies any fevers nausea vomiting or diarrhea. He presents concerned that his laceration is infected. He states he is trying to keep it clean, but is having a hard time doing so. He states it is draining pus. Related Data Home Medications Medication Instructions Recorded Confirmed clotrimazole 1 applic TOPICAL BID 06/28/18 11/16/18 ondansetron 1 tab PO DAILYX5 06/28/18 11/16/18 Previous Rx's Medication Instructions Recorded tamsulosin 0.4 mg capsule 0.4 mg PO DAILY #30 cap 05/31/18 amoxicillin 875 mg-potassium 1 tab PO BID #20 tab 11/16/18 clavulanate 125 mg tablet hydrocodone-acetaminophen [[place]] 1 tab PO Q4-6H PRN #7 tab 02/21/19 cephalexin 500 mg PO QID #40 cap 02/25/19 Allergies Allergy/AdvReac Type Severity Reaction Status Date / Time hydromorphone [From Dilaudid] Allergy Severe Difficulty Verified 02/25/19 16:18 Breathing Review of Systems <VERITO Wilkerson - Last Filed: 02/25/19 16:58> Review of Systems GENERAL: Denies chills, fatigue, malaise, fever, sweats. HEENT: See HPI RESPIRATORY: Denies dyspnea, cough, wheezing, hemoptysis, sputum. CARDIOVASCULAR: Denies chest pain, palpitations, orthopnea, edema, GASTROINTESTINAL: Denies nausea, vomiting, abdominal pain, diarrhea, constipation, melena. : Denies dysuria, frequency, incontinence, hematuria, urinary retention. MUSCULOSKELETAL: denies weakness, joint pain, or bony pain SKIN: See HPI NEUROLOGIC: Denies weakness, headache, numbness, change in speech, confusion, seizures, incoordination. PSYCHIATRIC: No concerning psychosocial issues. 12 point review of systems is negative except for those stated above PFSH <VERITO Wilkerson - Last Filed: 02/25/19 16:58> Medical History Nephrolithiasis (Chronic) Social History Smoking Status: Current every day smoker alcohol intake: current substance use type: marijuana Exam <VERITO Wilkerson - Last Filed: 02/25/19 16:58> Narrative Exam Narrative: GENERAL: This is a well-nourished, well-developed patient, no acute distress HEAD: Atraumatic. Normocephalic. No temporal or scalp tenderness. EYES: Pupils equal round and reactive. Extraocular motions intact. No scleral icterus. No injection or drainage. ENT: Nose without bleeding, purulent drainage or septal hematoma. Throat without erythema, tonsillar hypertrophy or exudate. Uvula midline. Airway patent. NECK: Trachea midline. No JVD or lymphadenopathy. Supple, nontender, no meningeal signs. CARDIOVASCULAR: Regular rate and rhythm RESPIRATORY: No cough. No increased respiratory effort. EXTREMITIES: No clubbing, cyanosis, or edema. No joint tenderness, effusion, or edema noted. BACK: Nontender without deformity or crepitance. No flank tenderness. NEURO: AOx3. SKIN: Laceration to left side of mouth extending from angle of left side of mouth over toward cheek. Slight surrounding erythema. Purulent drainage from incision noted. Initial Vital Signs Initial Vital Signs: Vital Signs Temperature 98.6 F 02/25/19 16:15 Pulse Rate 91 H 02/25/19 16:15 Respiratory Rate 18 02/25/19 16:15 Blood Pressure 116/88 02/25/19 16:15 Pulse Oximetry 100 02/25/19 16:15 <Suzette Ledesma DO - Last Filed: 02/28/19 23:49> Initial Vital Signs Initial Vital Signs: Vital Signs Temperature 98.6 F 02/25/19 16:15 Pulse Rate 91 H 02/25/19 16:15 Respiratory Rate 18 02/25/19 16:15 Blood Pressure 116/88 02/25/19 16:15 Pulse Oximetry 100 02/25/19 16:15 Course <FLAQUITA WilkersonBC - Last Filed: 02/25/19 16:58> Orders Ordered: ED Orders 02/25/19 16:47 Wound Culture and Gram Stain Stat Vital Signs - 8 hr 02/25/19 16:15 Temperature 98.6 F Pulse Rate 91 H Respiratory Rate 18 Blood Pressure 116/88 Pulse Oximetry 100 <Suzette Ledesma DO - Last Filed: 02/28/19 23:49> Orders Ordered: ED Orders 02/25/19 16:47 Wound Culture and Gram Stain Stat Vital Signs - 8 hr 02/25/19 16:15 Temperature 98.6 F Pulse Rate 91 H Respiratory Rate 18 Blood Pressure 116/88 Pulse Oximetry 100 MDM - Wound/Laceration <VERITO Wilkerson - Last Filed: 02/25/19 16:58> MDM Narrative Medical decision making narrative: The patient is a 34-year-old male who presents with a complex laceration and concern of infection. He is noted to have drainage from his incision, with slight surrounding erythema. This all started him on antibiotics. He does not have any diabetes IV drug use or recent hospitalizations. This will start Keflex. Discussed at length that he needs to follow up with primary care provider soon as possible. Discussed monitoring for signs and symptoms of worsening infection including fever, spreading redness, diarrhea etc into follow-up if any of those occur. The patient has no questions or concerns upon discharge. Discharge Plan Departure Patient Disposition: Home Clinical Impression: Infected laceration of lip Qualifiers: Encounter type: initial encounter Qualified Code(s): S01.511A - Laceration without foreign body of lip, initial encounter Discharge Date/Time: 02/25/19 16:51 Interventions: ED Discharge Assessment Last Done: 02/25/19 16:51 Instructions: DI for Wound Infection Activity Restrictions/Additional Instructions: Given or concerns about infection, I have placed you on an antibiotic. A wound culture is pending and results will be available in 48-72 hours. If we need to change your antibiotics based on her wound culture results, you will get a phone call. Please follow up with primary care provider soon as possible. Please come back to emergency department for any acute concerns such as fever, inability keep down fluids chest pain etc. Please monitor for signs of worsening infection such as fever, spreading redness vomiting or diarrhea. Be evaluated if these occur. Prescriptions: New cephalexin 500 mg capsule 500 mg PO QID Qty: 40 RF: 0 No Action tamsulosin 0.4 mg capsule 0.4 mg PO DAILY Qty: 30 RF: 0 amoxicillin-pot clavulanate 875-125 mg tablet 1 tab PO BID Qty: 20 RF: 0 ondansetron 4 mg tablet,disintegrating 1 tab PO DAILYX5 RF: 0 clotrimazole 1 % cream 1 applic Topical BID RF: 0 hydrocodone-acetaminophen [[place]] 5-325 mg tablet 1 tab PO Q4-6H PRN (Reason: pain) Qty: 7 RF: 0 <Suzette Ledesma DO - Last Filed: 02/28/19 23:49> Cosign ED Attending Farheen Attestation: I was immediately available in the department for consultation. Documentation has been reviewed. I agree with assessment and plan.
== END 2019-02-25 16:51 | disposition home or self-care (01) ==
PROVIDERS: Emergency Provider Nurse Practitioner Family
DX: S01.511D Laceration without foreign body of lip, subsequent encounter (principal); W18.39XD Other fall on same level, subsequent encounter
CPT/HCPCS: 87070; 87075; 87205; 99283

== ENCOUNTER 2019-07-19 09:22 | Emergency (ER) | payer OTHER, MEDICAID, SELFPAY ==
[2019-07-19 09:43] VITALS: BP 122/78; PULSE 85; RESP 16; TEMP 36.4; O2SAT 97; BMI 20.5
[2019-07-19 09:57] LABS: Add Manual Diff / Slide Review NO; Basophils Absolute Auto 0 /uL (0-100); Basophils Percent Auto 0.7 % (0-2); Eosinophils Absolute Auto 400 /uL (0-450); Eosinophils Percent Auto 5.1 % (2-4); Hematocrit 53.6 % (41-53); Hemoglobin 17.7 g/dL (13.5-17.5); Lymphocytes Absolute Auto 1700 /uL (1100-4500); Lymphocytes Percent Auto 24.4 % (25-40); Mean Corpuscular HGB Conc 32.9 % (30-36); Mean Corpuscular Hemoglobin 31.6 PG (26-34); Mean Corpuscular Volume 95.9 fL (80-100); Monocytes Absolute Auto 400 /uL (0-900); Monocytes Percent Auto 5.9 % (3-14); Neutrophils Absolute Auto 4600 /uL (1500-7000); Neutrophils Percent Auto 63.9 % (50-75); Platelet Count 296 X10^3/uL (150-400); Red Blood Cell Count 5.59 X10^6/uL (4.5-5.9); White Blood Cell Count 7.1 X10^3/uL (4.5-11.0)
[2019-07-19 10:00] LABS: Blood Urea Nitrogen 16 mg/dL (9-20); Calcium 9.5 mg/dL (8.4-10.2); Carbon Dioxide 31 mmol/L (22-32); Chloride 101 mmol/L (98-107); Estimated Glomerular Filt Rate > 60.0 mL/min (>60); Glucose 107 mg/dL (70-100); HEMOLYSIS 27 (0-50); Potassium 5.1 mmol/L (3.4-5.1); Sodium 138 mmol/L (137-145)
--- NOTE | 2019-07-19 10:03 | ED_ITS ---
HPI - Abdominal Pain General Chief Complaint: Abdominal Pain Stated Complaint: abd pain/nausea x4 days Time Seen by Provider: 07/19/19 09:36 Source: patient Mode of arrival: Ambulatory Limitations: no limitations History of Present Illness HPI narrative: Patient comes emergency department complaining of abdominal pain for the last 5 days. He states it is on the right and felt this those in the flank more of 1st, but now has moved to the right lower quadrant. Patient states he has a history of kidney stones, that that perhaps he was have a kidney stone again, but he states that he also began to notice pain up in his right shoulder, and wonder if he had ?gas?. Patient states that he has not been able to passed much gas lately, but has had normal bowel movements. He states that he has been nauseated but not vomiting. No measured fevers, the significant other states he ?felt hot?. Patient states he is otherwise healthy. He has his appendix and gallbladder still. Patient is not on any new medications. He does smoke cigarettes. He denies any dysuria or hematuria. He states he does have some pain in his low back. Patient denies any direct injury. He states that his pain has remained about the same for the last 5 days. Related Data Previous Rx's Medication Instructions Recorded hydrocodone-acetaminophen [[place]] 1 tab PO Q6H PRN #14 tab 07/19/19 ondansetron 4 mg PO Q6H PRN #14 tab 07/19/19 Allergies Allergy/AdvReac Type Severity Reaction Status Date / Time hydromorphone [From Dilaudid] Allergy Severe Difficulty Verified 02/25/19 16:18 Breathing Review of Systems Constitutional Constitutional: Denies chills, Denies fatigue, Denies fever(s), Denies frequent falls, Denies lethargy and Denies weakness Eyes Eyes: Denies change in vision, Denies eye discharge, Denies irritation and Denies loss of vision ENT Ears, Nose, Mouth, and Throat: Denies change in voice, Denies dizziness, Denies neck pain, Denies sore throat and Denies throat swelling Cardiovascular Cardiovascular: Denies chest pain, Denies irregular heart rhythm, Denies lightheadedness, Denies palpitations, Denies dyspnea, Denies dyspnea on exertion and Denies orthopnea Respiratory Respiratory: Denies cough, Denies dyspnea, Denies dyspnea on exertion and Denies wheezing Gastrointestinal Gastrointestinal: Reports abdominal pain (Right flank), Denies change in bowel habits, Denies diarrhea, Denies nausea and Denies vomiting Genitourinary Genitourinary: Denies hematuria, Denies flank pain, Denies urinary incontinence and Denies urinary urgency Musculoskeletal Musculoskeletal: Reports back pain (Left lower, with left leg raise), Denies muscle weakness, Denies neck pain, Denies numbness and Denies tingling Integumentary/Breasts Skin/Breast: Denies pruritus, Denies erythema, Denies rash and Denies wounds Neurologic Neurologic: Denies behavioral changes, Denies confusion, Denies dizziness, Denies frequent falls, Denies loss of vision, Denies numbness, Denies tingling and Denies weakness Psychiatric Psychiatric: Denies anxiety, Denies behavioral changes, Denies confusion, Denies depression, Denies homicidal ideation and Denies suicidal ideation Endocrine Endocrine: Denies fatigue, Denies flushing and Denies palpitations Hematologic/Lymphatic Hematologic/Lymphatic: Denies easy bruising Allergic/Immunologic Allergic/Immunologic: Denies urticaria, Denies throat swelling and Denies wheezing Patient History Medical History Nephrolithiasis (Chronic) Surgical History No pertinent past surgical history (Acute) Social History Smoking Status: Current every day smoker alcohol intake: current substance use type: marijuana Social History Smoking Status: Current every day smoker alcohol intake: current substance use type: marijuana alcohol intake frequency: a few times a month Substance Use Type: marijuana Exam Initial Vital Signs Initial Vital Signs: Vital Signs Temperature 97.5 F L 07/19/19 09:43 Pulse Rate 85 07/19/19 09:43 Respiratory Rate 16 07/19/19 09:43 Blood Pressure 122/78 07/19/19 09:43 Pulse Oximetry 97 07/19/19 09:43 Const General: cooperative and well developed Nutritional Appearance: well nourished Orientation: alert, awake, oriented x3 and not confused HENNV Head: normocephalic and atraumatic Ears: external ears normal and TM's normal bilaterally Nose: external nose normal and No nasal discharge Face and sinus: face symmetric and No dry mucous membranes Mouth: oral mucosae normal and moist mucous membranes Teeth and gingiva: dentition normal Eyes General: appearance normal, both eyes and all related structures Eyelids: eyelids normal Conjunctivae: conjunctivae normal Sclera: sclerae normal Pupils: PERRL EOM: EOM intact bilaterally Neck Neck: normal visual inspection, trachea midline, No lymphadenopathy, No midline deformity and No JVD Lymphatic: No lymphedema Chest Chest: normal inspection of the chest Resp Effort & Inspection: normal respiratory effort, able to speak in complete sentences, no respiratory distress and no use of accessory muscles Auscultation: clear to auscultation bilaterally, no rales, no rhonchi and no wheezes Cardio Rate: regular rate Rhythm: regular rhythm Heart Sounds: no click, no gallops, no murmurs and no rubs Pulses: normal peripheral pulses GI Inspection: non-distended Palpation: soft, no hepatosplenomegaly, No guarding, No pulsatile mass and tende r (Epigastric) Auscultation: normal bowel sounds Back/Spine/Pelvis Back: No CVA tenderness Cervical Spine: cervical ROM normal and No pain with cervical ROM Thoracic/Lumbar Spine: thoracic and lumbar spine normal to inspection Skin General: no rashes or lesions noted, No jaundice and No petechiae Neuro General: alert, oriented x3, gait normal and no focal motor deficits Speech: speech normal Extrem General: full ROM, no clubbing, cyanosis or edema, no pedal edema and no calf tenderness Psych Appearance: well kempt Mental Status: mental status grossly normal Attitude: cooperative Thought Content: normal and suicidality Judgment: judgment good Course Course Course Narrative: Patient was treated symptomatically in the emergency department and worked up with labs and CT scan of the abdomen and pelvis. Lab showed a moderately elevated lipase, but were otherwise unremarkable. CT scan was unremarkable. The patient was found to be feeling a little better after symptomatic management. I discussed his results with him. We have discussed home management of symptoms, including the need for clear liquid diet for the next couple of days to give pancreatic rest. I have discussed with him that I feel his back pain is most likely musculoskeletal in nature, [facility]. We have discussed the usual indications for return. Orders Ordered: Discontinued Medications Sodium Chloride (Normal Saline 0.9%) 1,000 mls @ 1,000 mls/hr IV BOLUS ONE Stop: 07/19/19 11:16 Last Infusion: 07/19/19 12:51 Dose: 0 mls/hr Documented by: Admin: 07/19/19 10:19 Dose: 1,000 mls/hr Documented by: NADIA Ketorolac Tromethamine (Toradol) 30 mg IV NOW ONE Stop: 07/19/19 10:00 Last Admin: 07/19/19 10:11 Dose: 30 mg Documented by: NADIA Morphine Sulfate (Morphine) 4 mg IV NOW ONE Stop: 07/19/19 10:00 Last Admin: 07/19/19 10:11 Dose: 4 mg Documented by: NADIA Ondansetron HCl (Zofran) 4 mg IV NOW ONE Stop: 07/19/19 10:00 Last Admin: 07/19/19 10:11 Dose: 4 mg Documented by: NADIA Vital Signs Vital signs: Vital Signs - 8 hr 07/19/19 09:43 Temperature 97.5 F L Pulse Rate 85 Respiratory Rate 16 Blood Pressure 122/78 Pulse Oximetry 97 MDM - Abdominal Pain Medical Records Attestation: I reviewed the patient's medical records. Lab Data Attestation: I reviewed the patient's lab results. Result diagrams: 07/19/19 09:39 07/19/19 09:39 Labs: Lab Results 07/19/19 07/19/19 07/19/19 Range/Units 09:39 09:39 09:39 WBC 7.1 (4.5-11.0) X10^3/uL RBC 5.59 (4.5-5.9) X10^6/uL Hgb 17.7 H (13.5-17.5) g/dL Hct 53.6 H (41-53) % MCV 95.9 (80-100) fL MCH 31.6 (26-34) PG MCHC 32.9 (30-36) % RDW 14.0 (11.6-14.8) % Plt Count 296 (150-400) X10^3/uL Neut % (Auto) 63.9 (50-75) % Lymph % (Auto) 24.4 L (25-40) % [place] % (Auto) 5.9 (3-14) % Eos % (Auto) 5.1 H (2-4) % Baso % (Auto) 0.7 (0-2) % Neut # (Auto) 4600 (7940-8966) /uL Lymph # (Auto) 1700 (4632-2254) /uL [place] # (Auto) 400 (0-900) /uL Eos # (Auto) 400 (0-450) /uL Baso # (Auto) 0 (0-100) /uL Sodium 138 138 (137-145) mmol/L Potassium 5.1 5.1 (3.4-5.1) mmol/L Chloride 101 101 (98-107) mmol/L Carbon Dioxide 31 30 (22-32) mmol/L BUN 16 16 (9-20) mg/dL Creatinine 0.80 0.80 (0.66-1.25) mg/dL Estimated GFR > 60.0 > 60.0 (>60) mL/min BUN/Creatinine Ratio 20.0 20.0 (6-22) Glucose 107 H 107 H (70-100) mg/dL Calcium 9.5 9.5 (8.4-10.2) mg/dL Total Bilirubin 0.7 (0.2-1.3) mg/dL AST 52 (17-59) IU/L ALT 30 (21-72) IU/L Alkaline Phosphatase 71 (38-126) U/L Total Protein 7.6 (6.3-8.2) g/dL Albumin 4.4 (3.5-5.0) g/dL Globulin 3.2 (1.7-4.1) g/dL Albumin/Globulin Ratio 1.4 (1.0-2.8) Lipase 529 H (23-300) U/L Point of care testing: Urine Dip Bedside Urine Glucose Negative Bedside Urine Bilirubin - Negative Bedside Urine Ketone - Negative Urine Specific [place] 1.010 Bedside Urine Occult Blood +/- Bedside Urine pH 6.0 Bedside Urine Protein - Negative Bedside Urine Urobilinogen - Negative Bedside Urine Nitrite - Negative Bedside Urine Leukocytes - Negative Esterase ABG Data Interpretation: PROCEDURE: CT ABDOMEN PELVIS WO CON INDICATIONS: Right flank pain, hematuria, TECHNIQUE: Noncontrast 5 mm thick sections acquired from the diaphragms to the symphysis. 5 mm thick coronal and sagittal reformats were then performed. For radiation dose reduction, the following was used: automated exposure control, adjustment of mA and/or kV according to patient size. COMPARISON: [facility], CT, CT KIDNEY URETER BLADDER (KUB), 04/01/2018, 15:39. FINDINGS: Image quality: Excellent. Lung bases: There is a small subpleural nodule anteriorly in the right middle lobe measuring 2 mm not included on the prior study. Heart size is normal. Urinary system: Within the inferior pole the right kidney, there is a small 2 mm nonobstructing stone. In the left kidney, there are a few small punctate densities suggestive of nonobstructing stones, measuring up to approximately 2 mm in the interpolar region. No hydronephrosis or perinephric fat stranding. Both ureters appear non-dilated throughout their expected courses. Bladder wall thickness is normal; no calcified bladder stones. There is mild enlargement of the prostate. Other solid organs: Noncontrast evaluation of the liver demonstrates no focal hepatic lesions. The gallbladder appears within normal limits without calcified gallstones. Pancreas is normal in contours. Spleen is normal in size. No adrenal nodules. Peritoneum and bowel: Unenhanced bowel loops demonstrate normal wall thickness and caliber. Evaluation of the appendix is limited in the absence of intravenous and oral contrast, but there is no definite evidence of appendicitis. There is colonic diverticulosis without acute diverticulitis. No free fluid or air. Nodes and vessels: No retroperitoneal or mesenteric adenopathy by size criteria. Aorta and inferior vena cava are normal in caliber. Abdominal wall: No ventral hernias. Pelvis: No free pelvic fluid. No inguinal hernias or adenopathy. Bones: No suspicious bony lesions. No vertebral body compression fractures. IMPRESSION: 1. Bilateral nephrolithiasis without evidence of obstructive uropathy. 2. No definite evidence of appendicitis in the absence of intravenous and oral contrast. 3. No calcified gallstones or gallbladder wall thickening. Dictated by: Gregg Horton M.D. on 07/19/2019 at 11:45 Approved by: Gregg Horton M.D. on 07/19/2019 at 11:50 Discharge Plan Departure Patient Disposition: Home Clinical Impression: Pancreatitis Qualifiers: Chronicity: acute Pancreatitis type: unspecified pancreatitis type Acute pancreatitis complication: no infection or necrosis Qualified Code(s): K85.90 - Acute pancreatitis without necrosis or infection, unspecified Back pain Qualifiers: Back pain location: low back pain Chronicity: acute Back pain laterality: left Sciatica presence: without sciatica Qualified Code(s): M54.5 - Low back pain Discharge Date/Time: 07/19/19 13:29 Instructions: DI for Pancreatitis, DI for Low Back Pain Activity Restrictions/Additional Instructions: Your CT scan does not show any stones coming down from your kidneys. You have a couple of tiny stones in the kidneys themselves, which would not be causing any symptoms. Your labs show mild inflammation of your pancreas, but the pancreas itself looks good on CT scan. There is no obvious evidence of appendicitis, and your white blood cell count looks good. At this point in time, the pancreatitis is the most likely thing that has been causing you to feel ill and being na useated. We will have you take nausea and pain medication at home, but otherwise, you will need to be on a clear liquid diet for the next couple of days. After this, you may begin to slowly reintroduce food into your diet, but should do this gradually. We will have you follow-up with your primary care physician to recheck your pancreas labs and make sure that these have improved. Prescriptions: New ondansetron 4 mg tablet,disintegrating 4 mg PO Q6H PRN (Reason: nausea and vomiting) Qty: 14 RF: 0 hydrocodone-acetaminophen [[place]] 5-325 mg tablet 1 tab PO Q6H PRN (Reason: pain) Qty: 14 RF: 0 Referrals: [facility] [Provider Group]
[2019-07-19] MEDS: KETOROLAC 60 MG/2 ML VIAL 30 MG IV (10:11)
[2019-07-19] MEDS: MORPHINE 4 MG/ML INJ IV (10:11)
[2019-07-19] MEDS: ONDANSETRON 4 MG/2 ML INJ IV (10:11)
[2019-07-19 10:16] LABS: Alanine Aminotransferase 30 IU/L (21-72); Albumin 4.4 g/dL (3.5-5.0); Albumin Globulin Ratio 1.4 (1.0-2.8); Alkaline Phosphatase 71 U/L (38-126); Aspartate Aminotransferase 52 IU/L (17-59); Bilirubin Total 0.7 mg/dL (0.2-1.3); Blood Urea Nitrogen 16 mg/dL (9-20); Calcium 9.5 mg/dL (8.4-10.2); Carbon Dioxide 30 mmol/L (22-32); Chloride 101 mmol/L (98-107); Estimated Glomerular Filt Rate > 60.0 mL/min (>60); Globulin 3.2 g/dL (1.7-4.1); Glucose 107 mg/dL (70-100); HEMOLYSIS 27 (0-50); Lipase 529 U/L (23-300); Potassium 5.1 mmol/L (3.4-5.1); Sodium 138 mmol/L (137-145); Total Protein 7.6 g/dL (6.3-8.2)
[2019-07-19 10:19] VITALS: BP 108/69; PULSE 72; RESP 12; O2SAT 98
[2019-07-19] MEDS: SODIUM CHLORIDE 0.9% 1,000 ML 1000 ML IV (10:19)
[2019-07-19 11:03] VITALS: BP 106/75; PULSE 56; RESP 16; O2SAT 100
--- NOTE | 2019-07-19 11:20 | DI.CT.S_ITS ---
PROCEDURE: CT ABDOMEN PELVIS WO CON INDICATIONS: Right flank pain, hematuria, TECHNIQUE: Noncontrast 5 mm thick sections acquired from the diaphragms to the symphysis. 5 mm thick coronal and sagittal reformats were then performed. For radiation dose reduction, the following was used: automated exposure control, adjustment of mA and/or kV according to patient size. COMPARISON: [facility], CT, CT KIDNEY URETER BLADDER (KUB), 04/01/2018, 15:39. FINDINGS: Image quality: Excellent. Lung bases: There is a small subpleural nodule anteriorly in the right middle lobe measuring 2 mm not included on the prior study. Heart size is normal. Urinary system: Within the inferior pole the right kidney, there is a small 2 mm nonobstructing stone. In the left kidney, there are a few small punctate densities suggestive of nonobstructing stones, measuring up to approximately 2 mm in the interpolar region. No hydronephrosis or perinephric fat stranding. Both ureters appear non-dilated throughout their expected courses. Bladder wall thickness is normal; no calcified bladder stones. There is mild enlargement of the prostate. Other solid organs: Noncontrast evaluation of the liver demonstrates no focal hepatic lesions. The gallbladder appears within normal limits without calcified gallstones. Pancreas is normal in contours. Spleen is normal in size. No adrenal nodules. Peritoneum and bowel: Unenhanced bowel loops demonstrate normal wall thickness and caliber. Evaluation of the appendix is limited in the absence of intravenous and oral contrast, but there is no definite evidence of appendicitis. There is colonic diverticulosis without acute diverticulitis. No free fluid or air. Nodes and vessels: No retroperitoneal or mesenteric adenopathy by size criteria. Aorta and inferior vena cava are normal in caliber. Abdominal wall: No ventral hernias. Pelvis: No free pelvic fluid. No inguinal hernias or adenopathy. Bones: No suspicious bony lesions. No vertebral body compression fractures. IMPRESSION: 1. Bilateral nephrolithiasis without evidence of obstructive uropathy. 2. No definite evidence of appendicitis in the absence of intravenous and oral contrast. 3. No calcified gallstones or gallbladder wall thickening. Dictated by: Gregg Horton M.D. on 07/19/2019 at 11:45 Approved by: Gregg Horton M.D. on 07/19/2019 at 11:50
[2019-07-19 12:00] VITALS: BP 112/73; PULSE 70; RESP 16; O2SAT 100
[2019-07-19 13:01] VITALS: BP 109/73; PULSE 64; RESP 16; O2SAT 100
== END 2019-07-19 13:29 | disposition home or self-care (01) ==
PROVIDERS: Emergency Provider Emergency Medicine
DX: K85.90 Acute pancreatitis without necrosis or infection, unspecified (principal); M54.5 Low back pain
CPT/HCPCS: 36415; 74176; 80048; 80053; 81003; 83690; 85025; 96361; 96374; 96375; 99283; 99284; J1885; J2270; J2405

== ENCOUNTER 2019-10-25 14:56 | Emergency (ER) | payer OTHER, MEDICAID, SELFPAY ==
[2019-10-25 15:03] VITALS: BP 126/72; PULSE 89; RESP 20; TEMP 37.2; O2SAT 98
[2019-10-25 16:05] LABS: Bacteria Urine Few (2-10); Culture Indicated Urine Cult Not Indicated; RBC Urine 5-10/HPF (0-5/HPF); WBC Urine 0-1/HPF (0-5/HPF)
[2019-10-25 16:16] LABS: Add Manual Diff / Slide Review NO; Basophils Absolute Auto 100 /uL (0-100); Basophils Percent Auto 1.3 % (0-2); Eosinophils Absolute Auto 100 /uL (0-450); Eosinophils Percent Auto 1.2 % (2-4); Hematocrit 43.4 % (41-53); Hemoglobin 14.8 g/dL (13.5-17.5); Lymphocytes Absolute Auto 1400 /uL (1100-4500); Lymphocytes Percent Auto 19.7 % (25-40); Mean Corpuscular HGB Conc 34.2 % (30-36); Mean Corpuscular Hemoglobin 31.9 PG (26-34); Mean Corpuscular Volume 93.5 fL (80-100); Monocytes Absolute Auto 400 /uL (0-900); Neutrophils Absolute Auto 5200 /uL (1500-7000); Neutrophils Percent Auto 72.8 % (50-75); Platelet Count 258 X10^3/uL (150-400); Red Blood Cell Count 4.64 X10^6/uL (4.5-5.9); Red Cell Distribution Width 13.9 % (11.6-14.8); White Blood Cell Count 7.1 X10^3/uL (4.5-11.0)
[2019-10-25 16:27] LABS: Alanine Aminotransferase 30 IU/L (<50); Albumin 4.2 g/dL (3.5-5.0); Albumin Globulin Ratio 1.4 (1.0-2.8); Alkaline Phosphatase 70 U/L (38-126); Aspartate Aminotransferase 36 IU/L (17-59); BUN Creatinine Ratio 15.6 (6-22); Bilirubin Total 0.5 mg/dL (0.2-1.3); Blood Urea Nitrogen 14 mg/dL (9-20); Calcium 9.1 mg/dL (8.4-10.2); Carbon Dioxide 26 mmol/L (22-32); Chloride 105 mmol/L (98-107); Estimated Glomerular Filt Rate > 60.0 mL/min (>60); Glucose 88 mg/dL (70-100); HEMOLYSIS < 15 (0-50); Potassium 4.2 mmol/L (3.4-5.1); Sodium 139 mmol/L (137-145); Total Protein 7.2 g/dL (6.3-8.2)
[2019-10-25] MEDS: SODIUM CHLORIDE 0.9% 1,000 ML 1000 ML IV (17:07)
[2019-10-25] MEDS: KETOROLAC 60 MG/2 ML VIAL 30 MG IV (17:07)
--- NOTE | 2019-10-25 20:04 | ED.ABDPAIN ---
HPI - Abdominal Pain General Chief Complaint: Abdominal Pain Stated Complaint: states kidney pain Time Seen by Provider: 10/25/19 17:02 Source: patient Mode of arrival: Ambulatory Limitations: no limitations History of Present Illness HPI narrative: The patient is a 34-year-old male current smoker with history of kidney stones who presents with a chief complaint of right-sided flank pain for the past 3 days. He states he has a history of kidney stones and this feels similar. He presents requesting Flomax. Denies any fevers, does complain of some nausea, no vomiting or diarrhea. He states that the pain feels exactly like previous kidney stones. Denies any left-sided pain. Denies any hematuria urgency or frequency. He states he has had multiple kidney stones in the past, does not want imaging today. Related Data Previous Rx's Medication Instructions Recorded hydrocodone-acetaminophen [[place]] 1 tab PO Q6H PRN #14 tab 07/19/19 ondansetron 4 mg PO Q6H PRN #14 tab 07/19/19 ketorolac 10 mg PO TID PRN #14 tab 10/25/19 ondansetron 4 mg PO Q6H PRN #20 tab 10/25/19 tamsulosin 0.4 mg PO DAILY #7 cap 10/25/19 Allergies Allergy/AdvReac Type Severity Reaction Status Date / Time hydromorphone [From Dilaudid] Allergy Severe Difficulty Verified 02/25/19 16:18 Breathing Patient History Medical History Nephrolithiasis (Chronic) Social History Smoking Status: Current every day smoker alcohol intake: current substance use type: marijuana Smoking Status: Current every day smoker alcohol intake frequency: a few times a month Substance Use Type: marijuana Exam Narrative Exam Narrative: GENERAL: This is a well-nourished, well-developed patient, in no acute distress HEAD: Atraumatic. Normocephalic. No temporal or scalp tenderness. EYES: Pupils equal round and reactive. Extraocular motions intact. No scleral icterus. No injection or drainage. ENT: Nose without bleeding, purulent drainage or septal hematoma. Throat without erythema, tonsillar hypertrophy or exudate. Uvula midline. Airway patent. NECK: Trachea midline. No JVD or lymphadenopathy. Supple, nontender, no meningeal signs. CARDIOVASCULAR: Regular rate and rhythm RESPIRATORY: Clear to auscultation. Breath sounds equal bilaterally. No wheezes, rales, or rhonchi. No cough. No increased respiratory effort. No accessory muscle use. GASTROINTESTINAL: Abdomen soft, non-tender, nondistended. No hepato-splenomegaly, or palpable masses. No guarding. Active bowel sounds all 4 quadrants EXTREMITIES: No clubbing, cyanosis, or edema. No joint tenderness, effusion, or edema noted. BACK: Nontender without deformity or crepitance. CVA tenderness to palpation right side, no CVA tenderness to left-sided palpation NEURO: AOx3. SKIN: No rash or erythema. Initial Vital Signs Initial Vital Signs: Vital Signs Temperature 98.9 F 10/25/19 15:03 Pulse Rate 89 10/25/19 15:03 Respiratory Rate 20 10/25/19 15:03 Blood Pressure 126/72 10/25/19 15:03 Pulse Oximetry 98 10/25/19 15:03 Scores GCS Gisele coma scale eye opening: Spontaneous G[place] coma scale verbal response: Orientated [place] coma scale motor response: Obey commands Gisele coma scale total score: 15 Course Orders Ordered: ED Orders 10/25/19 15:30 Urine Microscopic Stat 10/25/19 16:01 CMP [Comprehensive Metabolic Panel] Stat Complete Blood Count AUTO DIFF Stat Discontinued Medications Sodium Chloride (Normal Saline 0.9%) 1,000 mls @ 1,000 mls/hr IV BOLUS ONE Stop: 10/25/19 18:02 Last Infusion: 10/25/19 18:24 Dose: 0 mls/hr Documented by: Admin: 10/25/19 17:07 Dose: 1,000 mls/hr Documented by: HEIDI Ketorolac Tromethamine (Toradol) 30 mg IV NOW ONE Stop: 10/25/19 17:04 Last Admin: 10/25/19 17:07 Dose: 30 mg Documented by: HEIDI Vital Signs Vital signs: Vital Signs - 8 hr 10/25/19 15:03 Temperature 98.9 F Pulse Rate 89 Respiratory Rate 20 Blood Pressure 126/72 Pulse Oximetry 98 MDM - Abdominal Pain Lab Data Attestation: I reviewed the patient's lab results. Result diagrams: 10/25/19 16:01 10/25/19 16:01 Labs: Lab Results 10/25/19 10/25/19 10/25/19 Range/Units 15:30 16:01 16:01 WBC 7.1 (4.5-11.0) X10^3/uL RBC 4.64 (4.5-5.9) X10^6/uL Hgb 14.8 (13.5-17.5) g/dL Hct 43.4 (41-53) % MCV 93.5 (80-100) fL MCH 31.9 (26-34) PG MCHC 34.2 (30-36) % RDW 13.9 (11.6-14.8) % Plt Count 258 (150-400) X10^3/uL Neut % (Auto) 72.8 (50-75) % Lymph % (Auto) 19.7 L (25-40) % [place] % (Auto) 5.0 (3-14) % Eos % (Auto) 1.2 L (2-4) % Baso % (Auto) 1.3 (0-2) % Neut # (Auto) 5200 (4828-1212) /uL Lymph # (Auto) 1400 (2137-9089) /uL [place] # (Auto) 400 (0-900) /uL Eos # (Auto) 100 (0-450) /uL Baso # (Auto) 100 (0-100) /uL Sodium 139 (137-145) mmol/L Potassium 4.2 (3.4-5.1) mmol/L Chloride 105 (98-107) mmol/L Carbon Dioxide 26 (22-32) mmol/L BUN 14 (9-20) mg/dL Creatinine 0.90 (0.66-1.25) mg/dL Estimated GFR > 60.0 (>60) mL/min BUN/Creatinine Ratio 15.6 (6-22) Glucose 88 (70-100) mg/dL Calcium 9.1 (8.4-10.2) mg/dL Total Bilirubin 0.5 (0.2-1.3) mg/dL AST 36 (17-59) IU/L ALT 30 (<50) IU/L Alkaline Phosphatase 70 (38-126) U/L Total Protein 7.2 (6.3-8.2) g/dL Albumin 4.2 (3.5-5.0) g/dL Globulin 3.0 (1.7-4.1) g/dL Albumin/Globulin Ratio 1.4 (1.0-2.8) Urine RBC 5-10/hpf H (0-5/HPF) Urine WBC 0-1/hpf (0-5/HPF) Urine Bacteria Few (2-10) H (None) Ur Culture Indicated? Cult not indicated Point of care testing: Urine Dip Bedside Urine Glucose Negative Bedside Urine Bilirubin - Negative Bedside Urine Ketone - Negative Urine Specific [place] 1.020 Bedside Urine Occult Blood ++ Bedside Urine pH 7.0 Bedside Urine Protein ++ 100 Bedside Urine Urobilinogen +/- 1mg Bedside Urine Nitrite - Negative Bedside Urine Leukocytes - Negative Esterase MDM Narrative Medical decision making narrative: The patient is a 34-year-old male who presents with a chief complaint of right-sided flank pain ongoing for the past 3 days. His kidney function is within normal limits, his urine does not indicate culture any denies any fever dysuria. He states that this is consistent with previous kidney stones, and that he does not want imaging today as he has had multiple CT scans and x-rays in the past. I discussed that we need to be careful if we elected to defer imaging as flank pain could be caused from other sources such as appendicitis etcetera. Patient states he does not want imaging any understands these risks. I discussed at length that he needs to come back to the emergency department for any acute concerns such as inability keep down fluids, abdominal pain with fever etcetera. Discussed monitoring for dysuria etcetera. Patient states understanding and states that he will come back to the emergency department if he has any acute issues. He also has primary care follow-up scheduled next week. Patient was given Flomax, Toradol with instructions to not combine with any other NSAIDs and Zofran. Patient stated he wanted to hold off on narcotics, and I'm okay with this given that we have no imaging at this point time. Patient has no questions or concerns upon discharge and states understanding of return precautions as well as follow-up care. Discharge Plan Departure Patient Disposition: Home Clinical Impression: Acute flank pain Discharge Date/Time: 10/25/19 18:25 Instructions: DI for Kidney Stones, DI for Flank Pain Activity Restrictions/Additional Instructions: Today presents complaining of flank pain that is consistent with previous kidney stones. However you do not want imaging today. We have elected to treat you for kidney stones, but remember that if he feel worse or cannot keep down fluids have any acute concerns please come back to the emergency department I sent 3 prescriptions to [facility]. This includes Zofran for nausea, ketorolac for pain, and Flomax I have given you a prescription of Toradol. This is an NSAID. Do not combine it with other NSAIDs such as Aleve or ibuprofen. I suggest taking it with some food, as it can irritate your stomach. Please follow-up with primary care provider in the next few days Please come back to the emergency department for any acute concerns Prescriptions: New ketorolac 10 mg tablet 10 mg PO TID PRN (Reason: pain) Qty: 14 RF: 0 ondansetron 4 mg tablet,disintegrating 4 mg PO Q6H PRN (Reason: nausea and vomiting) Qty: 20 RF: 0 tamsulosin 0.4 mg capsule 0.4 mg PO DAILY Qty: 7 RF: 0 No Action ondansetron 4 mg tablet,disintegrating 4 mg PO Q6H PRN (Reason: nausea and vomiting) Qty: 14 RF: 0 hydrocodone-acetaminophen [[place]] 5-325 mg tablet 1 tab PO Q6H PRN (Reason: pain) Qty: 14 RF: 0
== END 2019-10-25 18:25 | disposition home or self-care (01) ==
PROVIDERS: Emergency Medicine; Emergency Provider Nurse Practitioner Family
DX: R10.9 Unspecified abdominal pain (principal); Z87.442 Personal history of urinary calculi
CPT/HCPCS: 36415; 80053; 81003; 81015; 85025; 96361; 96374; 99284; J1885